=== PATIENT | female | born 1930 | race Caucasian/White ===

== ENCOUNTER → 2017-10-31 | Outpatient (REF) | payer MEDICARE, OTHER ==
[2017-11-01 14:34] LABS: FERRITIN 82 NG/ML (8-252); IRON (FE) 83 UG/DL (50-170); TOTAL IRON BINDING CAPACITY 412 UG/DL (250-450)
[2017-11-01 20:40] LABS: PERCENT SATURATION 20.1 % (13.2-45.0)
== END ==
LOC: M LAB REF 13:45
DX: D50.9 Iron deficiency anemia, unspecified (principal)
CPT/HCPCS: 83550